=== PATIENT | female | born 1935 | race Caucasian/White ===

== ENCOUNTER 2018-02-21 21:05 | Emergency (ER) | payer OTHER ==
[~2018-02-21] VITALS: Ht 160 cm; Wt 49.9 kg
[2018-02-21] MEDS ORDERED: ONDANSETRON HCL/PF 4 MG/2 ML VIAL ONE (21:28)
[2018-02-21] MEDS ORDERED: ONDANSETRON HCL/PF 4 MG/2 ML VIAL IVP ONE (21:30)
[2018-02-21] MEDS ORDERED: IV NS 0.9% 1,000 ML BAG IV ONE (21:30)
[2018-02-21 21:37] LABS: BASOPHILS % (AUTO) 0.6 % (0.0-2.0); EOSINOPHILS % (AUTO) 1.2 % (0.0-6.0); HEMATOCRIT 37 % (33-45); HEMOGLOBIN 12.2 g/dL (11.5-14.8); LYMPHOCYTES # (AUTO) 0.9 /CMM (0.8-4.8); LYMPHOCYTES % (AUTO) 15.1 % (20.0-44.0); MEAN CORPUSCULAR HGB CONC 33 g/dl (31.0-36.0); MEAN CORPUSCULAR VOLUME 91 fL (82-100); MONOCYTES # (AUTO) 0.4 /CMM (0.1-1.30); MONOCYTES % (AUTO) 6.8 % (2.0-12.0); NEUTROPHILS # (AUTO) 4.7 /CMM (1.8-8.9); NEUTROPHILS % (AUTO) 76.3 % (43.0-81.0); PLATELET COUNT (AUTO) 226 /CMM (150-450); WHITE BLOOD COUNT (AUTO) 6.1 K/uL (4.3-11.0)
--- NOTE | 2018-02-21 21:44 | NUR ---
BIB [facility] C/O NEAR SYNCOPAL EPISODE WHILE EATING AT [facility]. -LOC -FALL. -TRAUMA NOTED. 4MG ZOFRAN GIVEN COOK HELPER PASTRY. PT AAOX4, VSS. STILL C/O NAUSEA. DENIES DIZZINESS, CP, SOB, WEAKNESS @ THIS TIME. PT SEEN & EVAL'D BY DR. COOLEY. MEDICATED FOR NAUSEA, PT ANTHONY WELL. PLACED ON RELAY ADJUSTER & WILL CONT TO MONITOR.
[2018-02-21 21:47] LABS: CALCIUM, SERUM 10.8 mg/dL (8.5-10.1); CARBON DIOXIDE 20 mmol/L (21-32); CHLORIDE 108 mmol/L (98-107); CREATININE 0.6 mg/dL (0.6-1.3); GLUCOSE 107 mg/dL (74-106); POTASSIUM 3.3 mmol/L (3.5-5.1); SODIUM SERUM 141 mmol/L (136-145); UREA NITROGEN, BLOOD 17 mg/dL (7-18)
[2018-02-21 21:52] LABS: ALANINE AMINOTRANSFERASE 17 U/L (12-78); ALBUMIN 3.7 g/dL (3.4-5.0); ALKALINE PHOSPHATASE 77 U/L (46-116); ASPARTATE AMINOTRANSFERASE 14 U/L (15-37); BILIRUBIN,DIRECT 0.1 mg/dL (0.0-0.2); BILIRUBIN,TOTAL 0.3 mg/dL (0.2-1.0); LIPASE 140 U/L (73-393); TOTAL PROTEIN, SERUM 7.8 g/dL (6.4-8.2)
--- NOTE | 2018-02-21 22:47 | NUR ---
PT AMB TO BR W/O DIFFICULTY.
--- NOTE | 2018-02-21 22:57 | NUR ---
URINE COLLECTED & SENT TO LAB.
[2018-02-21 23:20] LABS: APPEARANCE,URINE SL CLOUDY (CLEAR); BILIRUBIN,URINE NEGATIVE (NEGATIVE); BLOOD, URINE NEGATIVE Ery/uL (NEGATIVE); COLOR,URINE YELLOW (YELLOW); KETONES,URINE TRACE (NEGATIVE); LEUKOCYTE ESTERASE ,URINE NEGATIVE (NEGATIVE); NITRITE, URINE NEGATIVE (NEGATIVE); PROTEIN,URINE NEGATIVE (NEGATIVE); UGLUCOSE NEGATIVE (NEGATIVE); UROBILINOGEN,URINE 0.2 EU/dL (0.2)
[2018-02-21 23:32] LABS: RBC,URINE NONE SEEN /HPF (0-2)
[2018-02-21 23:33] LABS: BACTERIA,URINE None seen /HPF (None Seen); SQUAMOUS EPITHELIAL CELL,UR Few /HPF (None Seen); WBC,URINE 0-2 /HPF (0-3)
--- NOTE | 2018-02-21 23:37 | NUR ---
CALLED [facility], PAGED DR FAJARDO TO CALL [facility] FOR REPORT.
--- NOTE | 2018-02-22 00:01 | NUR ---
Pt accepted to [facility] ER by Dr. Carson. # for report [phone]. ETA 45 minutes
[2018-02-22 00:06] VITALS: BP 131/55
--- NOTE | 2018-02-22 00:08 | NUR ---
CALLING [facility] FOR DR. MAHONEY. DR ROSA MARIA PETTIT
--- NOTE | 2018-02-22 00:10 | NUR ---
CALLING [facility] FOR DR. GONZALEZ RE: UPDATE ON PT.
--- NOTE | 2018-02-22 00:13 | NUR ---
REPORT GIVEN TO MICHEAL FABIAN FOR CONT OF CARE.
--- NOTE | 2018-02-22 00:53 | NUR ---
[facility] at bedside for transport.
== END 2018-02-22 01:16 | disposition short-term general hospital (02) ==
LOC: ER 21:06
DX: R55 Syncope and collapse (principal); I44.7 Left bundle-branch block, unspecified; I10 Essential (primary) hypertension; J44.9 Chronic obstructive pulmonary disease, unspecified
CPT/HCPCS: 36415; 71045-TC; 80048-TC; 80076-TC; 81000-TC; 83690-TC; 84484-TC; 85025-TC; A4606; J2405; J7030; Z7610